=== PATIENT | female | born 1950 | race Caucasian/White ===

== ENCOUNTER 2018-11-10 18:52 | Emergency (ER) | payer OTHER, MEDICARE ==
[~2018-11-10] VITALS: Ht 170.2 cm; Wt 56.2 kg
[2018-11-10 19:03] VITALS: BP 171/86; Ht 170.2 cm; Wt 56.2 kg
== END 2018-11-10 20:27 | disposition home or self-care (01) ==
LOC: ED 18:52
DX: S00.531A Contusion of lip, initial encounter (principal); W01.0XXA Fall on same level from slipping, tripping and stumbling without subsequent striking against object, initial encounter; Y93.89 Activity, other specified; Y92.89 Other specified places as the place of occurrence of the external cause; Y99.8 Other external cause status